=== PATIENT | male | born 1985 | race Caucasian/White ===

== ENCOUNTER 2019-02-19 11:03 | Emergency (ER) | payer BC ==
[~2019-02-19] VITALS: Ht 167.6 cm; Wt 81.2 kg
[2019-02-19 11:27] VITALS: Ht 167.6 cm; Wt 81.2 kg
[2019-02-19 14:35] LABS: BASOPHIL % 0.3 % (0-2); PLATELET COUNT 255 x10^3mcL (130-400); RED CELL DISTRIBUTION WIDTH 13.1 % (11.5-14.5)
[2019-02-19 14:52] LABS: CALCIUM 8.9 mg/dL (8.5-10.1); CARBON DIOXIDE 26.6 mmol/L (21-32); CHLORIDE SERUM 105 mmol/L (98-107); CREATININE SERUM 0.8 mg/dL (0.7-1.3); GFR1 > 60 mL/min; GLUCOSE SERUM 102 mg/dL (74-106); POTASSIUM SERUM 4.2 mmol/L (3.5-5.1); SODIUM SERUM 142 mmol/L (136-145)
[2019-02-19 14:53] LABS: LIPASE 56 IU/L (73-393)
[2019-02-19 15:04] LABS: UA SPECIFIC GRAVITY >=1.030 (1.005-1.035); microscopic required? YES; urine erythrocyte NEGATIVE (NEGATIVE)
[2019-02-19 16:52] VITALS: BP 140/84
== END 2019-02-19 16:52 | disposition home or self-care (01) ==
LOC: ED 11:03
PROVIDERS: Emergency Medicine
DX: S82.842A Displaced bimalleolar fracture of left lower leg, initial encounter for closed fracture (principal); S52.572A Other intraarticular fracture of lower end of left radius, initial encounter for closed fracture; V29.49XA Motorcycle driver injured in collision with other motor vehicles in traffic accident, initial encounter; Y93.55 Activity, bike riding; Y92.413 State road as the place of occurrence of the external cause; Y99.8 Other external cause status; S20.212A Contusion of left front wall of thorax, initial encounter; S30.0XXA Contusion of lower back and pelvis, initial encounter; S80.02XA Contusion of left knee, initial encounter
CPT/HCPCS: J7030; Q9967